=== PATIENT | female | born 1980 | race Hispanic/Latino ===

== ENCOUNTER 2018-09-05 13:25 | Inpatient (IN) | payer MEDICAID, OTHER ==
[~2018-09-05] VITALS: Ht 157.5 cm; Wt 54.8 kg
[2018-09-05] MEDS ORDERED: ONDANSETRON HCL 4 MG/2 ML VIAL ONE (14:03)
[2018-09-05 14:06] LABS: BASOPHILS % (AUTO) 0.1 % (0.0-5.0); HEMATOCRIT 37.4 % (36-48); LYMPHOCYTES % (AUTO) 5.3 % (21.0-51.0); MEAN CORPUSCULAR HEMOGLOBIN 26.3 pg (27.0-33.0); MEAN CORPUSCULAR HGB CONC 32.3 g/dL (32.0-36.0); MEAN CORPUSCULAR VOLUME 81.4 fL (79-99); MONOCYTES % (AUTO) 6.7 % (3.0-13.0); NEUTROPHILS % (AUTO) 87.9 % (40.0-77.0); PLATELET COUNT (AUTO) 165 K/uL (130-400); RED CELL DISTRIBUTION WIDTH 19.6 % (11.0-15.5); WHITE BLOOD COUNT (AUTO) 7.3 K/uL (4.8-10.8)
[2018-09-05 14:17] LABS: INR 1.05 (0.85-1.15); PARTIAL THROMBOPLASTIN TIME 23.1 SEC (26.3-35.5)
[2018-09-05] MEDS ORDERED: ASPIRIN 325 MG TABLET ONE (14:24)
[2018-09-05 14:27] LABS: ALBUMIN 4.4 g/dL (3.5-5.0); BILIRUBIN,TOTAL 0.9 mg/dL (0.2-1.0); CREATININE 1.2 mg/dL (0.5-1.5); TOTAL PROTEIN, SERUM 9.8 g/dL (6.0-8.3)
[2018-09-05 14:30] LABS: POTASSIUM 2.5 mmol/L (3.5-5.1)
[2018-09-05] MEDS ORDERED: MAGNESIUM 2GM PREMIX 50ML 50 ML IV ONE (14:44)
[2018-09-05] MEDS ORDERED: POTASSIUM CHLORIDE 20MEQ/100ML 100 ML IV ONE (14:45)
[2018-09-05] MEDS: POTASSIUM CHLORIDE IV SCH (17:45)
[2018-09-05] MEDS: 1/2 NORMAL SALINE IV SCH (17:45)
[2018-09-05 19:53] VITALS: BP 122/79
[2018-09-05] MEDS ORDERED: ACETAMINOPHEN 325 MG TAB PO PRN (20:15)
[2018-09-05] MEDS: FAMOTIDINE 20MG TAB 20 MG TAB PO SCH (20:28)
[2018-09-05] MEDS ORDERED: BUSP5TAB3 PO (20:36)
[2018-09-05] MEDS: BUSPIRONE HCL 5 MG TABLET PO SCH (22:17)
[2018-09-05 23:48] VITALS: BP 140/85
[2018-09-06] MEDS: GUAIFENESIN-DM 200/20 MG 10 ML PO PRN ×2 (02:16→09:26)
[2018-09-06] MEDS: 1/2 NORMAL SALINE IV SCH ×3 (03:57→12:34)
[2018-09-06] MEDS: POTASSIUM CHLORIDE IV SCH ×3 (03:57→12:34)
[2018-09-06 04:03] VITALS: BP 120/77
[2018-09-06 07:52] VITALS: BP 137/87
[2018-09-06] MEDS ORDERED: MAGNESIUM 4GM PREMIX 100ML 100 ML IV SCH (08:45)
[2018-09-06] MEDS ORDERED: FLUTICASONE PROPIONATE 50MCG/SPRAY 16 GM BOTTLE EN SCH ×2 (09:00→11:50)
[2018-09-06 09:19] LABS: HEMATOCRIT 32.3 % (36-48); MEAN CORPUSCULAR HEMOGLOBIN 27.1 pg (27.0-33.0); MEAN CORPUSCULAR HGB CONC 33.1 g/dL (32.0-36.0); MEAN CORPUSCULAR VOLUME 81.7 fL (79-99); PLATELET COUNT (AUTO) 148 K/uL (130-400); RED BLOOD CELL COUNT(AUTO) 3.95 MIL/uL (4.00-5.50); RED CELL DISTRIBUTION WIDTH 19.1 % (11.0-15.5); WHITE BLOOD COUNT (AUTO) 6.3 K/uL (4.8-10.8)
[2018-09-06] MEDS: SODIUM CHLORIDE 0.9% 1000ML 1,000 ML IV SCH ×2 (09:27→16:36)
[2018-09-06] MEDS: ENOXAPARIN SODIUM 40 MG/0.4 ML SYRINGE SQ SCH (09:27)
[2018-09-06] MEDS: CEFTRIAXONE SODIUM 2 GM VIAL IVP SCH (09:28)
[2018-09-06] MEDS: FAMOTIDINE 20MG TAB 20 MG TAB PO SCH ×2 (09:28→20:24)
[2018-09-06] MEDS: BUSPIRONE HCL 5 MG TABLET PO SCH ×2 (09:28→20:24)
[2018-09-06] MEDS ORDERED: BENZOCAINE/MENTH/CETYLPYRD CL 1 EACH LOZENGE MM PRN (09:30)
[2018-09-06 09:39] LABS: CREATININE 0.8 mg/dL (0.5-1.5)
[2018-09-06] MEDS: AZITHROMYCIN 500MG+NS 250ML 250 ML IV SCH (09:47)
[2018-09-06 10:11] LABS: POTASSIUM 2.9 mmol/L (3.5-5.1)
[2018-09-06] MEDS: IPRATROPIUM/ALBUTEROL SULFATE 3 ML SOLUTION IH SCH ×3 (11:16→23:49)
[2018-09-06 11:42] VITALS: BP 121/73
[2018-09-06] MEDS ORDERED: GUAIFENESIN-CODEINE 5 ML SYRUP PO PRN (12:15)
[2018-09-06] MEDS: POTASSIUM CHLORIDE 20 MEQ ERTAB PO SCH ×4 (12:17→23:56)
[2018-09-06] MEDS: IBUPROFEN 800 MG TAB PO SCH ×2 (12:25→16:40)
[2018-09-06 16:30] VITALS: BP 125/76
[2018-09-06] MEDS: BUDESONIDE 0.5 MG/2 ML INH IH SCH (18:25)
[2018-09-06 20:04] VITALS: BP 122/74
[2018-09-07 00:01] VITALS: BP 120/86
[2018-09-07] MEDS: POTASSIUM CHLORIDE 20 MEQ ERTAB PO SCH ×2 (04:02→08:17)
[2018-09-07 04:08] VITALS: BP 118/81
[2018-09-07 04:27] LABS: CREATININE 0.7 mg/dL (0.5-1.5); MAGNESIUM 2.4 mg/dL (1.80-2.40)
[2018-09-07] MEDS: BUDESONIDE 0.5 MG/2 ML INH IH SCH (05:45)
[2018-09-07] MEDS: IPRATROPIUM/ALBUTEROL SULFATE 3 ML SOLUTION IH SCH ×2 (05:45→11:07)
[2018-09-07 08:01] VITALS: BP 127/83
[2018-09-07] MEDS: AZITHROMYCIN 500MG+NS 250ML 250 ML IV SCH (08:15)
[2018-09-07] MEDS: ENOXAPARIN SODIUM 40 MG/0.4 ML SYRINGE SQ SCH (08:15)
[2018-09-07] MEDS: FAMOTIDINE 20MG TAB 20 MG TAB PO SCH (08:16)
[2018-09-07] MEDS: IBUPROFEN 800 MG TAB PO SCH (08:16)
[2018-09-07] MEDS: BUSPIRONE HCL 5 MG TABLET PO SCH (08:17)
[2018-09-07] MEDS: CEFTRIAXONE SODIUM 2 GM VIAL IVP SCH (08:18)
[2018-09-07] MEDS ORDERED: LOPERAMIDE HCL 2 MG CAP PO PRN (11:00)
[2018-09-07 11:40] VITALS: BP 121/75
[2018-09-07] MEDS ORDERED: GUAI5SYR4 PO (12:26)
[2018-09-07] MEDS ORDERED: LOPE2CAP PO (12:26)
[2018-09-07] MEDS ORDERED: IBUP-2077 PO (12:26)
== END 2018-09-07 16:00 | disposition home or self-care (01) | DRG 872 ==
LOC: EDH 13:25 → OBSVTOIN 13:26 → EDHIP 13:26 → 2AH 18:22
PROVIDERS: ADMIT Family Medicine; ATTEND Family Medicine
DX: A41.9 Sepsis, unspecified organism (principal); E83.42 Hypomagnesemia; E87.6 Hypokalemia; F17.200 Nicotine dependence, unspecified, uncomplicated; J98.01 Acute bronchospasm; J02.9 Acute pharyngitis, unspecified; K59.00 Constipation, unspecified; B97.29 Other coronavirus as the cause of diseases classified elsewhere; B97.89 Other viral agents as the cause of diseases classified elsewhere; E03.9 Hypothyroidism, unspecified; G47.00 Insomnia, unspecified; F41.9 Anxiety disorder, unspecified; J22 Unspecified acute lower respiratory infection; R53.81 Other malaise; R53.83 Other fatigue
CPT/HCPCS: 36415; 71046; 80048; 80053; 82550; 83735; 84443; 84484; 85025; 85027; 85610; 85730; 87633; 87804; 93005; 94640; 94664; A4218; J0456; J0696; J1650; J2405; J3475; J3480; J7030

== ENCOUNTER 2018-10-27 02:28 | Emergency (ER) | payer OTHER ==
[~2018-10-27 02:28] MED LIST: BUSP5TAB3 PO; GUAI5SYR4 PO; IBUP-2077 PO; LOPE2CAP PO
[2018-10-27] MEDS ORDERED: KETOROLAC TROMETHAMINE 60 MG/2 ML VIAL ONE (02:56)
[2018-10-27] MEDS ORDERED: MORPHINE SULFATE 4 MG/1ML SYG ONE (02:56)
== END 2018-10-27 03:25 | disposition home or self-care (01) ==
LOC: EDH 02:28
DX: B02.9 Zoster without complications (principal); F41.9 Anxiety disorder, unspecified; E07.9 Disorder of thyroid, unspecified; Z72.0 Tobacco use
CPT/HCPCS: 96372 ×2; 99283; J1885; J2270

== ENCOUNTER 2018-11-24 20:49 | Emergency (ER) | payer OTHER ==
[2018-11-24] MEDS ORDERED: ONDANSETRON HCL 4 MG/2 ML VIAL ONE (21:13)
[2018-11-24 21:22] LABS: BASOPHILS % (AUTO) 0.4 % (0.0-5.0); LYMPHOCYTES % (AUTO) 4.8 % (21.0-51.0); MEAN CORPUSCULAR HEMOGLOBIN 26.7 pg (27.0-33.0); MEAN CORPUSCULAR HGB CONC 32.6 g/dL (32.0-36.0); MONOCYTES % (AUTO) 5.9 % (3.0-13.0); NEUTROPHILS % (AUTO) 88.9 % (40.0-77.0); PLATELET COUNT (AUTO) 184 K/uL (130-400); RED BLOOD CELL COUNT(AUTO) 4.75 MIL/uL (4.00-5.50); RED CELL DISTRIBUTION WIDTH 20.5 % (11.0-15.5); WHITE BLOOD COUNT (AUTO) 8.4 K/uL (4.8-10.8)
[2018-11-24] MEDS ORDERED: LORAZEPAM 2 MG/ML 1 ML VIAL ONE (21:33)
[2018-11-24 21:42] LABS: CREATININE 0.8 mg/dL (0.5-1.5); POTASSIUM 3.7 mmol/L (3.5-5.1)
[2018-11-24 21:44] LABS: ALBUMIN 4.4 g/dL (3.5-5.0); BILIRUBIN,TOTAL 0.8 mg/dL (0.2-1.0); TOTAL PROTEIN, SERUM 10.3 g/dL (6.0-8.3)
[2018-11-24 22:30] LABS: AMPHET/METH SCREEN,URINE NEGATIVE (NEGATIVE); BARBITURATE SCREEN, URINE NEGATIVE (NEGATIVE); BENZODIAZEPINES SCREEN,URINE NEGATIVE (NEGATIVE); CANNABINOID SCREEN,URINE NEGATIVE (NEGATIVE); COCAINE SCREEN,URINE NEGATIVE (NEGATIVE); OPIATE SCREEN,URINE POSITIVE (NEGATIVE); PHENCYCLIDINE SCREEN,URINE NEGATIVE (NEGATIVE)
== END 2018-11-24 23:47 | disposition home or self-care (01) ==
LOC: EDH 20:49
DX: F41.9 Anxiety disorder, unspecified (principal); I10 Essential (primary) hypertension; E07.9 Disorder of thyroid, unspecified; E78.5 Hyperlipidemia, unspecified; Z98.890 Other specified postprocedural states
CPT/HCPCS: 36415; 80053; 80305; 81025; 84443; 84484; 85025; 93005; 96374; 96375; 96376; 99284; J2060; J2405

== ENCOUNTER 2019-01-17 04:44 | Emergency (ER) | payer SELFPAY ==
[2019-01-17 06:16] LABS: EOSINOPHILS % (AUTO) 3.6 % (0.0-8.0); HEMATOCRIT 36.2 % (36-48); LYMPHOCYTES % (AUTO) 58.2 % (21.0-51.0); MEAN CORPUSCULAR HEMOGLOBIN 27.4 pg (27.0-33.0); MEAN CORPUSCULAR HGB CONC 32.7 g/dL (32.0-36.0); MEAN CORPUSCULAR VOLUME 83.8 fL (79-99); NEUTROPHILS % (AUTO) 23.2 % (40.0-77.0); PLATELET COUNT (AUTO) 193 K/uL (130-400); RED BLOOD CELL COUNT(AUTO) 4.32 MIL/uL (4.00-5.50); RED CELL DISTRIBUTION WIDTH 19.7 % (11.0-15.5); WHITE BLOOD COUNT (AUTO) 5.2 K/uL (4.8-10.8)
[2019-01-17 06:25] LABS: CREATININE 0.7 mg/dL (0.5-1.5); POTASSIUM 3.3 mmol/L (3.5-5.1)
[2019-01-17 06:28] LABS: APPEARANCE,URINE Clear (CLEAR); BILIRUBIN,URINE Negative (NEGATIVE); COLOR,URINE Yellow (YELLOW); GLUCOSE, URINE (UA) Negative (NEGATIVE); KETONES,URINE Negative (NEGATIVE); LEUKOCYTE ESTERASE ,URINE Negative (NEGATIVE); NITRATE,URINE Negative (NEGATIVE); OCCULT BLOOD,URINE Large (NEGATIVE); PH,URINE 5.5 (5.0-8.0); PROTEIN,URINE Negative (NEGATIVE); UROBILINOGEN,URINE 0.2 mg/dL (0.2-1.0)
[2019-01-17 06:34] LABS: ALBUMIN 3.6 g/dL (3.5-5.0); BILIRUBIN,TOTAL 0.2 mg/dL (0.2-1.0); TOTAL PROTEIN, SERUM 8.8 g/dL (6.0-8.3)
[2019-01-17 06:41] LABS: BACTERIA,URINE Rare /HPF (None Seen); WBC,URINE None Seen /HPF (0-1)
[2019-01-17 06:58] LABS: MAGNESIUM 2.2 mg/dL (1.80-2.40); THYROID STIMULATING HORMONE 3.89 uIU/mL (0.36-3.74)
== END 2019-01-17 09:01 | disposition home or self-care (01) ==
LOC: EDH 04:44
DX: E86.9 Volume depletion, unspecified (principal); R53.82 Chronic fatigue, unspecified; R11.2 Nausea with vomiting, unspecified; R20.2 Paresthesia of skin; I10 Essential (primary) hypertension; E78.5 Hyperlipidemia, unspecified; F41.9 Anxiety disorder, unspecified; E07.9 Disorder of thyroid, unspecified; Z72.0 Tobacco use; Z98.890 Other specified postprocedural states
CPT/HCPCS: 36415; 80053; 81001; 81025; 82550; 83735; 84443; 84484; 85025; 93005; 96360; 96361

== ENCOUNTER 2019-04-26 00:51 | Emergency (ER) | payer SELFPAY ==
[2019-04-26 01:41] LABS: APPEARANCE,URINE Clear (CLEAR); BILIRUBIN,URINE Negative (NEGATIVE); COLOR,URINE Yellow (YELLOW); GLUCOSE, URINE (UA) Negative (NEGATIVE); KETONES,URINE Negative (NEGATIVE); LEUKOCYTE ESTERASE ,URINE Negative (NEGATIVE); NITRATE,URINE Negative (NEGATIVE); OCCULT BLOOD,URINE Negative (NEGATIVE); PH,URINE 6.5 (5.0-8.0); PROTEIN,URINE Negative (NEGATIVE); UROBILINOGEN,URINE 0.2 mg/dL (0.2-1.0)
[2019-04-26 01:43] LABS: BASOPHILS % (AUTO) 1.1 % (0.0-5.0); EOSINOPHILS % (AUTO) 3.5 % (0.0-8.0); HEMATOCRIT 36.9 % (36-48); MEAN CORPUSCULAR HEMOGLOBIN 27.8 pg (27.0-33.0); MEAN CORPUSCULAR HGB CONC 32.9 g/dL (32.0-36.0); MEAN CORPUSCULAR VOLUME 84.7 fL (79-99); MONOCYTES % (AUTO) 14.8 % (3.0-13.0); NEUTROPHILS % (AUTO) 30.6 % (40.0-77.0); NUCLEATED RED BLOOD CELLS 0.1 % (0.0-0.19); PLATELET COUNT (AUTO) 255 K/uL (130-400); RED BLOOD CELL COUNT(AUTO) 4.36 MIL/uL (4.00-5.50); RED CELL DISTRIBUTION WIDTH 21.8 % (11.0-15.5); WHITE BLOOD COUNT (AUTO) 6.7 K/uL (4.8-10.8)
[2019-04-26 01:50] LABS: AMPHET/METH SCREEN,URINE NEGATIVE (NEGATIVE); BARBITURATE SCREEN, URINE NEGATIVE (NEGATIVE); BENZODIAZEPINES SCREEN,URINE NEGATIVE (NEGATIVE); CANNABINOID SCREEN,URINE NEGATIVE (NEGATIVE); COCAINE SCREEN,URINE NEGATIVE (NEGATIVE); OPIATE SCREEN,URINE NEGATIVE (NEGATIVE); PHENCYCLIDINE SCREEN,URINE NEGATIVE (NEGATIVE)
[2019-04-26 01:58] LABS: HCG,QUAL RESULT NEGATIVE (NEGATIVE)
[2019-04-26 02:05] LABS: INR 0.95 (0.85-1.15); PARTIAL THROMBOPLASTIN TIME 21.8 SEC (26.3-35.5)
[2019-04-26 02:09] LABS: ALBUMIN 3.6 g/dL (3.5-5.0); BILIRUBIN,TOTAL 0.2 mg/dL (0.2-1.0); CREATININE 0.6 mg/dL (0.5-1.5); TOTAL PROTEIN, SERUM 8.5 g/dL (6.0-8.3)
[2019-04-26] MEDS ORDERED: POTASSIUM CHLORIDE 20 MEQ ERTAB PO ONE (02:51)
[2019-04-26] MEDS ORDERED: ACETAMINOPHEN EXTRA STRENGTH 500 MG TABLET ONE (03:11)
[2019-04-26] MEDS ORDERED: SODIUM CHLORIDE 0.9% 1000ML 1,000 ML IV ONE (03:11)
[2019-04-26] MEDS ORDERED: IOHEXOL-350 75 ML VIAL IV ONE (03:17)
== END 2019-04-26 05:47 | disposition home or self-care (01) ==
LOC: EDH 00:51
DX: R07.89 Other chest pain (principal); E87.6 Hypokalemia; Z72.0 Tobacco use
CPT/HCPCS: 36415; 71045; 71275; 80053; 80305; 81003; 81025; 82550; 83690; 83874; 84484 ×2; 85025; 85378; 85610; 85730; 93005 ×2; 99285; J7030; Q9967

== ENCOUNTER 2020-08-19 03:28 | Emergency (ER) | payer OTHER ==
[2020-08-19 03:51] LABS: APPEARANCE,URINE Clear (CLEAR); BILIRUBIN,URINE Negative (NEGATIVE); COLOR,URINE Yellow (YELLOW); GLUCOSE, URINE (UA) Negative (NEGATIVE); KETONES,URINE Negative (NEGATIVE); LEUKOCYTE ESTERASE ,URINE Negative (NEGATIVE); NITRATE,URINE Negative (NEGATIVE); OCCULT BLOOD,URINE Negative (NEGATIVE); PROTEIN,URINE POS 1+ mg/dL (NEGATIVE); UROBILINOGEN,URINE 0.2 mg/dL (0.2-1.0)
[2020-08-19 03:55] LABS: HCG,QUAL RESULT NEGATIVE (NEGATIVE)
[2020-08-19 04:25] LABS: AMPHET/METH SCREEN,URINE NEGATIVE (NEGATIVE); BARBITURATE SCREEN, URINE NEGATIVE (NEGATIVE); BENZODIAZEPINES SCREEN,URINE NEGATIVE (NEGATIVE); CANNABINOID SCREEN,URINE NEGATIVE (NEGATIVE); COCAINE SCREEN,URINE NEGATIVE (NEGATIVE); OPIATE SCREEN,URINE NEGATIVE (NEGATIVE); PHENCYCLIDINE SCREEN,URINE NEGATIVE (NEGATIVE)
== END 2020-08-19 04:23 | disposition home or self-care (01) ==
LOC: EDH 03:28
DX: F43.0 Acute stress reaction (principal); Z72.89 Other problems related to lifestyle; F41.9 Anxiety disorder, unspecified; Z72.0 Tobacco use; F32.9 Major depressive disorder, single episode, unspecified
CPT/HCPCS: 80305; 81003; 81025

== ENCOUNTER 2023-08-17 16:08 | Emergency (ER) | payer BC ==
[~2023-08-17] VITALS: Ht 157.5 cm; Wt 59.0 kg
[~2023-08-17 16:08] MED LIST changes: +ACET-2079 PO; +DOCU-116 PO
[2023-08-17 17:33] LABS: CREATININE 0.7 mg/dL (0.5-1.5); POTASSIUM 3.4 mmol/L (3.5-5.1)
[2023-08-17 17:35] LABS: BASOPHILS # (AUTO) 0.03 K/uL (0.00-0.20); BASOPHILS % (AUTO) 0.3 % (0.0-5.0); EOSINOPHILS # (AUTO) 0.21 K/uL (0.00-0.70); HEMATOCRIT 43.8 % (36-48); IMMATURE GRANULOCYTE ABSOLUTE 0.03 K/uL (0-1); LYMPHOCYTES # (AUTO) 1.5 K/uL (1.0-4.8); LYMPHOCYTES % (AUTO) 14.5 % (21.0-51.0); MEAN CORPUSCULAR HEMOGLOBIN 28.7 pg (27.0-33.0); MEAN CORPUSCULAR VOLUME 89.9 fL (79-99); MONOCYTES # (AUTO) 0.9 K/uL (0.1-1.0); MONOCYTES % (AUTO) 8.3 % (3.0-13.0); NEUTROPHILS # (AUTO) 7.8 K/uL (1.8-7.7); NEUTROPHILS % (AUTO) 74.6 % (40.0-77.0); PLATELET COUNT (AUTO) 222 K/uL (130-400); RED BLOOD CELL COUNT(AUTO) 4.87 MIL/uL (4.00-5.50); RED CELL DISTRIBUTION WIDTH 16.1 % (11.0-15.5); WHITE BLOOD COUNT (AUTO) 10.4 K/uL (4.8-10.8)
[2023-08-17 17:38] LABS: ALBUMIN 3.5 g/dL (3.5-5.0); BILIRUBIN,TOTAL 0.8 mg/dL (0.2-1.0); TOTAL PROTEIN, SERUM 8.3 g/dL (6.0-8.3)
[2023-08-17 17:47] LABS: APPEARANCE,URINE CLOUDY (CLEAR); BILIRUBIN,URINE NEGATIVE (NEGATIVE); COLOR,URINE YELLOW (YELLOW); GLUCOSE, URINE (UA) NEGATIVE (NEGATIVE); KETONES,URINE NEGATIVE (NEGATIVE); LEUKOCYTE ESTERASE ,URINE 25 Leu/uL (NEGATIVE); NITRATE,URINE NEGATIVE (NEGATIVE); PH,URINE 6.5 (5.0-8.0); PROTEIN,URINE 50 mg/dL (NEGATIVE); UROBILINOGEN,URINE 3 mg/dL (0.2-1.0)
[2023-08-17 17:48] LABS: ADD UA MICROSCOPIC YES
[2023-08-17 17:50] LABS: BACTERIA,URINE RARE /HPF (None Seen); MUCUS,URINE MOD LPF (None Seen); OTHER CASTS, URINE 1 /LPF (None Seen); SQUAMOUS EPITHELIAL CELL,UR MOD /HPF (0-2)
[2023-08-17 19:08] VITALS: BP 135/86; PULSE 75; RESP 17; O2SAT 96
[2023-08-17] MEDS ORDERED: CEPH500T PO (20:14)
[2023-08-17] MEDS ORDERED: DICYCLOMINE 20MG (10MG/ML) AMP IM ONE ×2 (20:25→20:30)
[2023-08-17] MEDS ORDERED: KETOROLAC 60 MG VIAL (30MG/ML) IM ONE (20:30)
== END 2023-08-17 20:35 | disposition home or self-care (01) ==
LOC: EDH 16:08
DX: R10.11 Right upper quadrant pain (principal); N39.0 Urinary tract infection, site not specified
CPT/HCPCS: 99284; 76705; 80053; 83690; 85025; 81001; 36415; 96372; J0500; J1885